=== PATIENT | female | born 1980 | race Two or more races ===

== ENCOUNTER 2019-12-27 17:26 | Emergency (ER) | payer SELFPAY ==
[~2019-12-27] VITALS: Ht 157.5 cm; Wt 50.0 kg
[2019-12-27] MEDS ORDERED: KETOROLAC 30MG/ML VIAL IV STA (18:04)
[2019-12-27] MEDS ORDERED: SODIUM CHLORIDE 0.9% 500 ML IV ONE (18:15)
[2019-12-27 18:44] LABS: BASOPHILS % 0.3 % (0.0-2.0); EOSINOPHILS % 0.7 % (0.0-5.0); HEMATOCRIT. 41.7 % (36.0-48.0); HEMOGLOBIN. 14.6 g/dL (12.0-16.0); LYMPHOCYTES % 18.9 % (20.0-50.0); MEAN CORPUSCULAR HEMOGLOBIN 31.6 pg (28.0-32.0); MEAN CORPUSCULAR VOLUME 90.7 fL (81.0-99.0); NEUTROPHILS % 74.1 % (40.0-76.0); PLATELET 205 x1000/uL (130-400)
[2019-12-27 18:58] LABS: HCG SCREEN NEGATIVE
[2019-12-27 19:00] LABS: CHLORIDE 107 mEq/L (98-107)
[2019-12-27 20:47] VITALS: BP 109/87
== END 2019-12-27 20:48 | disposition home or self-care (01) ==
LOC: ER 17:26
DX: J06.9 Acute upper respiratory infection, unspecified (principal)
CPT/HCPCS: 36415; 71045; 80053; 83880; 84484; 84703; 85025; 87804; 96360; 99284; J1885; J7040